=== PATIENT | female | born 1980 | race Two or more races ===

== ENCOUNTER 2016-04-30 04:47 | Emergency (ER) | payer SELFPAY ==
[~2016-04-30] VITALS: Ht 152.4 cm; Wt 45.4 kg
[2016-04-30 05:25] VITALS: BP 109/74
== END 2016-04-30 05:46 | disposition left against medical advice (07) ==
LOC: ER 04:52
DX: R10.9 Unspecified abdominal pain (principal); Z53.21 Procedure and treatment not carried out due to patient leaving prior to being seen by health care provider